=== PATIENT | female | born 1990 | race Caucasian/White ===

== ENCOUNTER 2019-03-25 00:51 | Inpatient (IN) | payer MEDICAID | END 2019-03-29 04:28 | disposition short-term general hospital (02) | LOC: ICU WEST 03-26 09:41 → ER 00:51 → TELE 05:29 → TELE-CENTR 08:58 | PROC: 5A1945Z Respiratory Ventilation, 24-96 Consecutive Hours (ICD-10-PCS; principal; ~2019-03-25) | PROC: 0BH17EZ Insertion of Endotracheal Airway into Trachea, Via Natural or Artificial Opening (ICD-10-PCS; ~2019-03-25) | DX: I50.33 Acute on chronic diastolic (congestive) heart failure (principal); I21.4 Non-ST elevation (NSTEMI) myocardial infarction; A41.9 Sepsis, unspecified organism; J96.01 Acute respiratory failure with hypoxia; J96.02 Acute respiratory failure with hypercapnia; N17.0 Acute kidney failure with tubular necrosis; R57.9 Shock, unspecified; E66.01 Morbid (severe) obesity due to excess calories; R65.10 Systemic inflammatory response syndrome (SIRS) of non-infectious origin without acute organ dysfunction; E87.5 Hyperkalemia; O14.90 Unspecified pre-eclampsia, unspecified trimester; O90.3 Peripartum cardiomyopathy; E87.0 Hyperosmolality and hypernatremia; E16.2 Hypoglycemia, unspecified; E87.6 Hypokalemia; N39.0 Urinary tract infection, site not specified; E55.9 Vitamin D deficiency, unspecified; I10 Essential (primary) hypertension ==